=== PATIENT | male | born 1955 | race Caucasian/White ===

== ENCOUNTER 2025-06-29 10:36 | Inpatient (IN) | payer MEDICARE ==
[2025-06-29 11:18] LABS: Actual Bicarbonate (HCO3v) 22.2 mEq/L (22-28); Analyzer IN Cardio ER; Base Excess -4.5 mEq/L (-2.0 to +3.0); Calcium, Ionized (venous) 1.21 mmol/L (1.16-1.32); Chloride (VBG) 110 mmol/L (98-106); Hematocrit-VBG 37 % (36.0-47.0); Hemoglobin (Hb) 12.5 g/dL (11.7-16.1); Potassium (VBG) 4.67 mmol/L (3.70-5.30); Sodium 142 mmol/L (133-146)
[2025-06-29] MEDS ORDERED: Cefepime 2 GM VIAL ONE (11:22)
[2025-06-29 11:39] LABS: Lipase 53 U/L (8-78)
[2025-06-29 11:41] LABS: ALT (SGPT) 126 U/L (Less than 34); AST (SGOT) 92 U/L (11-34); Albumin 2.9 g/dL (3.1-4.5); Alkaline Phosphatase 111 U/L (40-110); Anion Gap 14 mmol/L (10-20); BUN (Urea Nitrogen) 26 mg/dL (9.8-20.1); Bilirubin, Total 0.4 mg/dL (0.3-1.2); Calc. Creatinine Clearance 0 mL/min (70-130); Calcium 9.1 mg/dL (7.8-10.44); Carbon Dioxide 23 mmol/L (23-31); Chloride 114 mmol/L (98-107); Globulin 3.6 g/dL (2.4-3.5); Glucose 115 mg/dL (80-115); Potassium 4.9 mmol/L (3.5-5.1); Sodium 146 mmol/L (136-145)
[2025-06-29 11:42] LABS: Acetaminophen Less than 10 mcg/mL (Less than 10); Salicylate Less than 8.0 mg/dL (Less than 8.0)
[2025-06-29 11:44] LABS: INR-International Normal Ratio 1.2; Prothrombin Time 15.4 sec (12.0-14.7)
[2025-06-29 11:45] LABS: PTT 51.0 sec (22.9-36.1)
[2025-06-29 11:51] LABS: Bacteria/HPF None Seen HPF (None Seen); CAUTI Indications for Culture Dysuria,urgency,freq; Glucose, Urine (Dipstick) Normal (Negative); Leukocyte Negative Leu/uL (Negative); Protein, Urine (Dipstick) Negative (Neg-Trace); RBC/HPF 0-3 HPF (0-3); Specific Gravity, Urine 1.018 (1.002-1.036); WBC/HPF 0-3 HPF (0-3)
[2025-06-29 11:53] LABS: Urine Culture Reflex No No
[2025-06-29 11:56] LABS: Cocaine Metabolite Screen Negative (Negative); THC/Cannabinoid Screen Negative (Negative); Tricyclic Screen Negative (Negative)
[2025-06-29] MEDS ORDERED: VANCOMYCIN 2 GRAM/400 ML BAG ONE (11:57)
[2025-06-29 12:08] LABS: Hematocrit 34.1 % (36.0-47.0); Hemoglobin 10.6 g/dL (12.0-16.0); Mean Corpuscular Hemoglobin 31.4 pg (27.0-31.0); Mean Corpuscular Volume 100.9 fL (78.0-98.0); Platelet Count 93 10x3/uL (130-400); Red Blood Cell (RBC) Count 3.38 mill/uL (4.20-5.40); White Blood Cell (WBC) Count 12.04 10x3/uL (4.8-10.8)
[2025-06-29 12:13] LABS: Anisocytosis SLIGHT = 6-15 cells HPF (0-5); Burr Cells MODERATE= 6-15 cells HPF (0-1); Macrocytosis SLIGHT = 6-15 cells HPF (0-5); Platelet Adequacy Comment Platelets Decreased; Poikilocytosis SLIGHT = 6-15 cells HPF (0-5); Polychromasia SLIGHT = 2-3 cells HPF (0-2)
[2025-06-29] MEDS ORDERED: Iopamidol-370 76% 500 ML MDV (1 ML CHARGE) ONE (12:32)
[2025-06-29] MEDS ORDERED: Ondansetron PF 4 MG/2 ML Vial IVP PRN (13:01)
[2025-06-29] MEDS ORDERED: Acetaminophen 325 MG TAB PO PRN (13:01)
[2025-06-29] MEDS ORDERED: Guaifenesin DM 100-10/5 ML UDCUP PO PRN (13:01)
[2025-06-29] MEDS ORDERED: Acetaminophen/Codeine 30-300mg Tablet PO PRN (13:01)
[2025-06-29] MEDS ORDERED: Electrolyte Replacement Protocol 1 EACH FS SCH (13:15)
[2025-06-29] MEDS ORDERED: LevoFLOXacin 750 mg/D5W 150 ml Premix Bag ONE (13:40)
[2025-06-29] MEDS ORDERED: Norepinephrine 8 MG/0.9% NS 250 ML ONE (14:57)
[2025-06-29 22:39] LABS: Base Excess (BEa) -8.4 mEq/L (-2.0 to +3.0); Calcium, Ionized (arterial) 1.11 mmol/L (1.12-1.30); Hematocrit-ABG 30 % (42.0-52.0); Hemoglobin (Hb) 10.3 g/dL (14.0-18.0); Potassium - ABG Lab 4.56 mmol/L (3.70-5.30); pH, Arterial 7.404 (7.35-7.45)
[2025-06-29 22:40] LABS: Actual Bicarbonate (HCO3a) 14.9 mEq/L (22-28); CO2 Tension 24.4 mmHg (35.0-45.0); Puncture Site LINE
[2025-06-29 23:11] VITALS: BMI 33.5
[2025-06-29] MEDS: Norepinephrine 8 MG/0.9% NS 250 ML IVPB SCH (23:12)
[2025-06-29] MEDS: Hydrocortisone Sod Succ/PF 100 mg/2 ml Vial IVP SCH (23:24)
[2025-06-29] MEDS: Vasopressin In 0.9 % NaCl 100 ML ONE (23:38)
[2025-06-29] MEDS: Vancomycin HCl 1.25 GM in Sodium Chloride 0.9% 250 ML 250 ML IVPB SCH (23:45)
[2025-06-30] MEDS: Famotidine/PF 20 mg/2ml Vial SLOW IVP SCH (00:07)
[2025-06-30] MEDS: Communication Order-Pharmacy FS ONE (00:07)
[2025-06-30] MEDS: Hydrocortisone Sod Succ/PF 100 mg/2 ml Vial IVP SCH (05:53)
[2025-06-30 06:47] LABS: Hematocrit 28.1 % (42.0-52.0); Hemoglobin 9.0 g/dL (14.0-18.0); Mean Corpuscular Hemoglobin 32.7 pg (27.0-31.0); Mean Corpuscular Volume 102.2 fL (78.0-98.0); Platelet Count 111 10x3/uL (130-400); Red Blood Cell (RBC) Count 2.75 mill/uL (4.70-6.10); White Blood Cell (WBC) Count 18.03 10x3/uL (4.8-10.8)
[2025-06-30 07:02] LABS: Vancomycin, Random 57.3 ug/mL (See Comment)
[2025-06-30 07:14] LABS: ALT (SGPT) 100 U/L (Less than 45); AST (SGOT) 64 U/L (11-34); Albumin 2.3 g/dL (3.1-4.5); Alkaline Phosphatase 94 U/L (40-110); Anion Gap 14 mmol/L (10-20); BUN (Urea Nitrogen) 28 mg/dL (8.4-25.7); Bilirubin, Total 0.4 mg/dL (0.3-1.2); Calc. Creatinine Clearance 116 mL/min (70-130); Calcium 8.1 mg/dL (7.8-10.44); Carbon Dioxide 19 mmol/L (23-31); Chloride 115 mmol/L (98-107); Globulin 3.1 g/dL (2.4-3.5); Glucose 164 mg/dL (80-115); Potassium 5.8 mmol/L (3.5-5.1); Sodium 142 mmol/L (136-145)
[2025-06-30] MEDS: FLU (Fluad Triv) 25-26 (65UP)PF 45 MCG/0.5 ML Syringe IM ONE (07:41)
[2025-06-30 08:27] LABS: Anisocytosis SLIGHT = 6-15 cells HPF (0-5); Macrocytosis SLIGHT = 6-15 cells HPF (0-5); Nucleated RBC (Manual Ct) 1 % (0); Ovalocytes SLIGHT = 2-5 cells HPF (0-1); Platelet Adequacy Comment Platelets Decreased; Poikilocytosis SLIGHT = 6-15 cells HPF (0-5); Polychromasia SLIGHT = 2-3 cells HPF (0-2); Smudge Cells 2.8 %; Toxic Granulation MODERATE
[2025-06-30] MEDS: Enoxaparin 40 MG (0.4 mL) SYRINGE SC SCH (10:15)
[2025-06-30] MEDS: Vancomycin HCl 1.25 GM in Sodium Chloride 0.9% 250 ML 250 ML IVPB SCH (10:15)
[2025-06-30] MEDS: PNEUMOC 20-VAL CONJ-DIP CRM/PF 0.5 ML SYRINGE IM ONE (10:15)
[2025-06-30] MEDS: Mupirocin 1 GM TUBE NASAL DECOLONIZATION NASAL SCH (10:16)
[2025-06-30 10:25] LABS: Actual Bicarbonate (HCO3a) 18.2 mEq/L (22-28); Base Excess (BEa) -5.6 mEq/L (-2.0 to +3.0); CO2 Tension 29.4 mmHg (35.0-45.0); Calcium, Ionized (arterial) 1.09 mmol/L (1.12-1.30); Hematocrit-ABG 28 % (42.0-52.0); Hemoglobin (Hb) 9.5 g/dL (14.0-18.0); O2 Tension (PaO2), arterial 72.9 mmHg (> 80.0); Potassium - ABG Lab 5.43 mmol/L (3.70-5.30); pH, Arterial 7.409 (7.35-7.45)
[2025-06-30 10:26] LABS: Puncture Site Arterial Line
[2025-06-30 10:27] LABS: ALV-art Gradient 175.550 mmHg (0-20)
[2025-06-30] MEDS: Dextrose 50% Abboject 50 ML SYRINGE SLOW IVP SCH (10:31)
[2025-06-30] MEDS: Albuterol 2.5 MG (3 mL) NEB NEB SCH (10:32)
[2025-06-30] MEDS: Vasopressin In 0.9 % NaCl 100 ML IV SCH (12:22)
[2025-06-30 13:39] VITALS: BMI 33.5
[2025-06-30 17:55] LABS: Potassium 5.1 mmol/L (3.5-5.1)
[2025-06-30] MEDS: Cefepime 2 GM VIAL ONE (18:18)
[2025-06-30] MEDS ORDERED: Etomidate 40 MG (20 mL) VIAL ONE (19:10)
[2025-06-30] MEDS ORDERED: DISCONTINUE PREVIOUS NARCOTIC PAIN MEDICATIONS AND BENZODIAZEPINES FS SCH (20:00)
[2025-06-30] MEDS ORDERED: Fentanyl BOLUS 100 ML IVPB PRN (20:00)
[2025-06-30] MEDS ORDERED: Propofol BOLUS 1,000 MG/100 ML VIAL IV PRN (20:00)
[2025-06-30 20:05] LABS: Actual Bicarbonate (HCO3a) 17.3 mEq/L (22-28); Base Excess (BEa) -8.9 mEq/L (-2.0 to +3.0); CO2 Tension 38.1 mmHg (35.0-45.0); Calcium, Ionized (arterial) 1.17 mmol/L (1.12-1.30); Hematocrit-ABG 31 % (42.0-52.0); Hemoglobin (Hb) 10.4 g/dL (14.0-18.0); O2 Tension (PaO2), arterial 72.3 mmHg (> 80.0); Potassium - ABG Lab 4.87 mmol/L (3.70-5.30); pH, Arterial 7.274 (7.35-7.45)
[2025-06-30 20:07] LABS: ALV-art Gradient 593.075 mmHg (0-20); Puncture Site Arterial Line
[2025-06-30] MEDS: Calcium Chloride 1 GM/10 ML Abboject SYRINGE IVP SCH (20:36)
[2025-06-30] MEDS: Albumin 25% 25 GM (100 mL) BOT IVPB SCH (23:25)
[2025-07-01 05:11] LABS: Vancomycin, Random 30.0 ug/mL (See Comment)
[2025-07-01 08:02] LABS: Base Excess (BEa) -10.5 mEq/L (-2.0 to +3.0); CO2 Tension 28.4 mmHg (35.0-45.0); Calcium, Ionized (arterial) 1.18 mmol/L (1.12-1.30); Hematocrit-ABG 27 % (42.0-52.0); Hemoglobin (Hb) 9.2 g/dL (14.0-18.0); O2 Tension (PaO2), arterial 83.8 mmHg (> 80.0); Potassium - ABG Lab 5.10 mmol/L (3.70-5.30); pH, Arterial 7.322 (7.35-7.45)
[2025-07-01 08:05] LABS: ALV-art Gradient 308.500 mmHg (0-20); Actual Bicarbonate (HCO3a) 14.4 mEq/L (22-28); Puncture Site Arterial Line
[2025-07-01 22:36] LABS: L.pneumophilia Abs Non Reactive (Non Reactive)
[2025-07-02 05:59] LABS: Vancomycin, Random 25.7 ug/mL (See Comment)
[2025-07-02 08:52] LABS: Calc. Creatinine Clearance 96.0 mL/min (70-130)
[2025-07-02 21:24] LABS: #Basophils Less than 0.03 10x3/uL (0.0-0.2); #Eosinophils Less than 0.03 10x3/uL (0.0-0.7); #Monocytes 0.38 10x3/uL (0.11-0.59); #Neutrophils 8.91 10x3/uL (1.40-6.50); %Basophils 0.1 % (0.0-1.0); %Eosinophils 0.0 % (0.0-10.0); %Lymphocytes 4.6 % (21.0-51.0); %Monocytes 3.8 % (0.0-10.0); %Neutrophils 90.0 % (42.0-75.0); Hematocrit 22.5 % (42.0-52.0); Hemoglobin 6.9 g/dL (14.0-18.0); Mean Corpuscular Hemoglobin 31.8 pg (27.0-31.0); Mean Corpuscular Volume 103.7 fL (78.0-98.0); Platelet Count 50 10x3/uL (130-400); Red Blood Cell (RBC) Count 2.17 mill/uL (4.70-6.10); White Blood Cell (WBC) Count 9.91 10x3/uL (4.8-10.8)
[2025-07-02] MEDS: Albumin 5% 12.5 GM (250 mL) BOT IVPB SCH (21:24)
[2025-07-02 21:36] LABS: ALT (SGPT) 53 U/L (Less than 45); AST (SGOT) 45 U/L (11-34); Albumin 2.5 g/dL (3.1-4.5); Alkaline Phosphatase 108 U/L (40-110); Anion Gap 16 mmol/L (10-20); BUN (Urea Nitrogen) 43 mg/dL (8.4-25.7); Bilirubin, Total 0.7 mg/dL (0.3-1.2); Calc. Creatinine Clearance 85 mL/min (70-130); Calcium 8.8 mg/dL (7.8-10.44); Carbon Dioxide 14 mmol/L (23-31); Chloride 117 mmol/L (98-107); Globulin 2.9 g/dL (2.4-3.5); Glucose 149 mg/dL (80-115); Magnesium 2.1 mg/dL (1.6-2.6); Potassium 4.4 mmol/L (3.5-5.1); Sodium 143 mmol/L (136-145)
[2025-07-02] MEDS: Norepinephrine 8 MG/0.9% NS 250 ML IVPB SCH (23:14)
[2025-07-03 04:58] LABS: ALT (SGPT) 49 U/L (Less than 45); AST (SGOT) 36 U/L (11-34); Albumin 2.8 g/dL (3.1-4.5); Alkaline Phosphatase 106 U/L (40-110); Anion Gap 14 mmol/L (10-20); BUN (Urea Nitrogen) 44 mg/dL (8.4-25.7); Bilirubin, Total 0.9 mg/dL (0.3-1.2); Calc. Creatinine Clearance 86 mL/min (70-130); Calcium 9.0 mg/dL (7.8-10.44); Carbon Dioxide 13 mmol/L (23-31); Chloride 118 mmol/L (98-107); Globulin 2.8 g/dL (2.4-3.5); Glucose 131 mg/dL (80-115); Potassium 4.1 mmol/L (3.5-5.1); Sodium 141 mmol/L (136-145)
[2025-07-03 04:59] LABS: #Basophils Less than 0.03 10x3/uL (0.0-0.2); #Eosinophils Less than 0.03 10x3/uL (0.0-0.7); #Monocytes 0.44 10x3/uL (0.11-0.59); #Neutrophils 9.36 10x3/uL (1.40-6.50); %Basophils 0.2 % (0.0-1.0); %Eosinophils 0.0 % (0.0-10.0); %Lymphocytes 6.4 % (21.0-51.0); %Monocytes 4.1 % (0.0-10.0); %Neutrophils 88.0 % (42.0-75.0); Hematocrit 27.4 % (42.0-52.0); Hemoglobin 8.4 g/dL (14.0-18.0); Mean Corpuscular Hemoglobin 31.2 pg (27.0-31.0); Mean Corpuscular Volume 101.9 fL (78.0-98.0); Platelet Count 45 10x3/uL (130-400); Red Blood Cell (RBC) Count 2.69 mill/uL (4.70-6.10); White Blood Cell (WBC) Count 10.64 10x3/uL (4.8-10.8)
[2025-07-03] MEDS: Pantoprazole 40 MG VIAL IVP SCH ×2 (11:06→20:30)
[2025-07-03] MEDS: Furosemide 20 MG (2 mL) VIAL SLOW IVP SCH (12:16)
[2025-07-04 04:31] LABS: #Basophils Less than 0.03 10x3/uL (0.0-0.2); #Eosinophils 0.14 10x3/uL (0.0-0.7); #Monocytes 0.39 10x3/uL (0.11-0.59); #Neutrophils 7.77 10x3/uL (1.40-6.50); %Basophils 0.2 % (0.0-1.0); %Eosinophils 1.6 % (0.0-10.0); %Lymphocytes 5.6 % (21.0-51.0); %Monocytes 4.4 % (0.0-10.0); %Neutrophils 86.9 % (42.0-75.0); Hematocrit 26.2 % (42.0-52.0); Hemoglobin 8.1 g/dL (14.0-18.0); Mean Corpuscular Hemoglobin 30.9 pg (27.0-31.0); Mean Corpuscular Volume 100.0 fL (78.0-98.0); Platelet Count 51 10x3/uL (130-400); Red Blood Cell (RBC) Count 2.62 mill/uL (4.70-6.10); White Blood Cell (WBC) Count 8.94 10x3/uL (4.8-10.8)
[2025-07-04 04:41] LABS: ALT (SGPT) 39 U/L (Less than 45); AST (SGOT) 20 U/L (11-34); Albumin 2.4 g/dL (3.1-4.5); Alkaline Phosphatase 100 U/L (40-110); Anion Gap 15 mmol/L (10-20); BUN (Urea Nitrogen) 50 mg/dL (8.4-25.7); Bilirubin, Total 0.6 mg/dL (0.3-1.2); Calc. Creatinine Clearance 81 mL/min (70-130); Calcium 8.6 mg/dL (7.8-10.44); Carbon Dioxide 13 mmol/L (23-31); Chloride 119 mmol/L (98-107); Globulin 3.0 g/dL (2.4-3.5); Glucose 113 mg/dL (80-115); Potassium 3.7 mmol/L (3.5-5.1); Sodium 143 mmol/L (136-145)
[2025-07-04 10:08] VITALS: BP 125/68
[2025-07-04] MEDS: Artificial Tear Ophth Sol 15 ML BOT EA EYE PRN (11:29)
[2025-07-05 04:36] LABS: ALT (SGPT) 30 U/L (Less than 45); AST (SGOT) 19 U/L (11-34); Albumin 2.2 g/dL (3.1-4.5); Alkaline Phosphatase 96 U/L (40-110); Anion Gap 15 mmol/L (10-20); BUN (Urea Nitrogen) 44 mg/dL (8.4-25.7); Bilirubin, Total 0.6 mg/dL (0.3-1.2); Calc. Creatinine Clearance 94 mL/min (70-130); Calcium 8.5 mg/dL (7.8-10.44); Carbon Dioxide 15 mmol/L (23-31); Chloride 121 mmol/L (98-107); Globulin 3.3 g/dL (2.4-3.5); Glucose 106 mg/dL (80-115); Potassium 4.0 mmol/L (3.5-5.1); Sodium 147 mmol/L (136-145)
[2025-07-05 04:42] LABS: #Basophils Less than 0.03 10x3/uL (0.0-0.2); #Eosinophils 0.19 10x3/uL (0.0-0.7); #Monocytes 0.37 10x3/uL (0.11-0.59); #Neutrophils 8.26 10x3/uL (1.40-6.50); %Basophils 0.2 % (0.0-1.0); %Eosinophils 2.0 % (0.0-10.0); %Lymphocytes 5.0 % (21.0-51.0); %Monocytes 3.9 % (0.0-10.0); %Neutrophils 87.5 % (42.0-75.0); Hematocrit 26.7 % (42.0-52.0); Hemoglobin 8.1 g/dL (14.0-18.0); Mean Corpuscular Hemoglobin 31.0 pg (27.0-31.0); Mean Corpuscular Volume 102.3 fL (78.0-98.0); Platelet Count 55 10x3/uL (130-400); Red Blood Cell (RBC) Count 2.61 mill/uL (4.70-6.10); White Blood Cell (WBC) Count 9.44 10x3/uL (4.8-10.8)
[2025-07-05] MEDS ORDERED: Potassium Chloride 20 MEQ in Premix 1 BAG IVPB PRN (13:30)
[2025-07-05] MEDS ORDERED: PHOS-NAK 1 PKT PACK PO PRN (13:30)
[2025-07-05] MEDS ORDERED: Magnesium 2 GM/50 ML(in water) 2 GM in Premix 1 BAG IVPB PRN (13:30)
[2025-07-05] MEDS: DC Sedation Protocol FS ONE (17:50)
[2025-07-05] MEDS: Glycopyrrolate 0.4 MG/ 2 ML VIAL SLOW IVP SCH (18:18)
[2025-07-06] MEDS: Glycopyrrolate 0.4 MG/ 2 ML VIAL SLOW IVP SCH (02:45)
[2025-07-06] MEDS: Norepinephrine 8 MG/0.9% NS 250 ML IVPB SCH (06:13)
[2025-07-06] MEDS: Norepinephrine 8 MG/0.9% NS 250 ML ONE (06:14)
[2025-07-06 06:52] LABS: #Basophils 0.05 10x3/uL (0.0-0.2); #Eosinophils 0.18 10x3/uL (0.0-0.7); #Monocytes 0.84 10x3/uL (0.11-0.59); #Neutrophils 12.07 10x3/uL (1.40-6.50); %Basophils 0.3 % (0.0-1.0); %Eosinophils 1.3 % (0.0-10.0); %Lymphocytes 5.2 % (21.0-51.0); %Monocytes 5.9 % (0.0-10.0); %Neutrophils 84.3 % (42.0-75.0); Hematocrit 34.5 % (42.0-52.0); Hemoglobin 9.8 g/dL (14.0-18.0); Mean Corpuscular Hemoglobin 31.8 pg (27.0-31.0); Mean Corpuscular Volume 112.0 fL (78.0-98.0); Platelet Count 132 10x3/uL (130-400); Red Blood Cell (RBC) Count 3.08 mill/uL (4.70-6.10); White Blood Cell (WBC) Count 14.32 10x3/uL (4.8-10.8)
[2025-07-06 07:06] LABS: Anion Gap 18 mmol/L (10-20); BUN (Urea Nitrogen) 49 mg/dL (8.4-25.7); Calc. Creatinine Clearance 68 mL/min (70-130); Calcium 9.0 mg/dL (7.8-10.44); Carbon Dioxide 16 mmol/L (23-31); Chloride 124 mmol/L (98-107); Glucose 91 mg/dL (80-115); Potassium 5.7 mmol/L (3.5-5.1); Sodium 152 mmol/L (136-145)
[2025-07-06] MEDS: Dextrose 50% Abboject 50 ML SYRINGE SLOW IVP SCH (08:22)
[2025-07-06] MEDS: Hydrocortisone Sod Succ/PF 100 mg/2 ml Vial IVP SCH (08:43)
[2025-07-06 08:55] LABS: Actual Bicarbonate (HCO3a) 18.1 mEq/L (22-28); Base Excess (BEa) -15.3 mEq/L (-2.0 to +3.0); Calcium, Ionized (arterial) 1.35 mmol/L (1.12-1.30); Hematocrit-ABG 31 % (42.0-52.0); Hemoglobin (Hb) 10.6 g/dL (14.0-18.0); O2 Tension (PaO2), arterial 91.5 mmHg (> 80.0); Potassium - ABG Lab 5.41 mmol/L (3.70-5.30)
[2025-07-06] MEDS: D5 1/2 NS 500 ML IV SCH (08:57)
[2025-07-06] MEDS: Sodium Bicarb 50 MEQ/50 ML Abboject 8.4% SYRINGE IVP SCH (09:01)
[2025-07-06] MEDS: Calcium Chloride 1 GM/10 ML Abboject SYRINGE IVP SCH (09:01)
[2025-07-06] MEDS: Sodium Bicarb 50 MEQ/50 ML Abboject 8.4% SYRINGE ONE (09:15)
[2025-07-06 10:41] LABS: ALV-art Gradient 219.550 mmHg (0-20); CO2 Tension 93.4 mmHg (35.0-45.0); Puncture Site Left Radial artery; pH, Arterial 6.905 (7.35-7.45)
[2025-07-06] MEDS: Albuterol 1.25 MG (3 mL) NEB NEB SCH (10:49)
[2025-07-06 11:18] VITALS: TEMP 99.9
[2025-07-06 12:13] LABS: Anion Gap 18 mmol/L (10-20); BUN (Urea Nitrogen) 50 mg/dL (8.4-25.7); Calc. Creatinine Clearance 56 mL/min (70-130); Calcium 9.6 mg/dL (7.8-10.44); Carbon Dioxide 15 mmol/L (23-31); Chloride 122 mmol/L (98-107); Glucose 120 mg/dL (80-115); Potassium 6.4 mmol/L (3.5-5.1); Sodium 149 mmol/L (136-145)
[2025-07-06] MEDS ORDERED: Hydrocortisone Sod Succ/PF 100 mg/2 ml Vial IVP SCH (15:00)
== END 2025-07-06 12:06 | disposition expired | DRG 870 ==
LOC: ERS 10:36 → EDSEX 10:36 → ERHOLD 13:19 → CCU 22:25
PROVIDERS: ADMIT Internal Medicine; ATTEND Internal Medicine
PROC: 4A133R1 Monitoring of Arterial Saturation, Peripheral, Percutaneous Approach (ICD-10-PCS; 2025-06-29)
PROC: 5A0935A Assistance with Respiratory Ventilation, Less than 24 Consecutive Hours, High Flow/Velocity Cannula (ICD-10-PCS; 2025-06-29)
PROC: 3E03329 Introduction of Other Anti-infective into Peripheral Vein, Percutaneous Approach (ICD-10-PCS; 2025-06-29)
PROC: 3E033XZ Introduction of Vasopressor into Peripheral Vein, Percutaneous Approach (ICD-10-PCS; 2025-06-29)
PROC: 0BH17EZ Insertion of Endotracheal Airway into Trachea, Via Natural or Artificial Opening (ICD-10-PCS; principal; 2025-06-30)
PROC: 5A1955Z Respiratory Ventilation, Greater than 96 Consecutive Hours (ICD-10-PCS; 2025-06-30)
PROC: 3E02340 Introduction of Influenza Vaccine into Muscle, Percutaneous Approach (ICD-10-PCS; 2025-06-30)
PROC: 3E0234Z Introduction of Serum, Toxoid and Vaccine into Muscle, Percutaneous Approach (ICD-10-PCS; 2025-06-30)
PROC: 30233J1 Transfusion of Nonautologous Serum Albumin into Peripheral Vein, Percutaneous Approach (ICD-10-PCS; 2025-07-02)
PROC: 30233N1 Transfusion of Nonautologous Red Blood Cells into Peripheral Vein, Percutaneous Approach (ICD-10-PCS; 2025-07-03)
PROC: 5A0935A Assistance with Respiratory Ventilation, Less than 24 Consecutive Hours, High Flow/Velocity Cannula (ICD-10-PCS; 2025-07-05)
DX: A41.9 Sepsis, unspecified organism (principal); G93.41 Metabolic encephalopathy; R65.21 Severe sepsis with septic shock; J96.01 Acute respiratory failure with hypoxia; J69.0 Pneumonitis due to inhalation of food and vomit; E87.0 Hyperosmolality and hypernatremia; E87.20 Acidosis, unspecified; N17.9 Acute kidney failure, unspecified; Z51.5 Encounter for palliative care; Z66 Do not resuscitate; E03.9 Hypothyroidism, unspecified; E78.00 Pure hypercholesterolemia, unspecified; I10 Essential (primary) hypertension; F32.A Depression, unspecified; T68.XXXA Hypothermia, initial encounter; R74.01 Elevation of levels of liver transaminase levels; E88.09 Other disorders of plasma-protein metabolism, not elsewhere classified; G40.909 Epilepsy, unspecified, not intractable, without status epilepticus; D69.6 Thrombocytopenia, unspecified; I87.8 Other specified disorders of veins; R91.8 Other nonspecific abnormal finding of lung field; E87.5 Hyperkalemia; D64.9 Anemia, unspecified; Z79.899 Other long term (current) drug therapy; Z79.890 Hormone replacement therapy; Z79.82 Long term (current) use of aspirin
CPT/HCPCS: 36415; 36416; 36430; 36600; 70450; 71045; 71275; 72125; 74177; 80048; 80053; 80185; 80202; 80306; 80307; 81001; 82140; 82565; 82805; 83605; 83690; 83735; 83880; 84145; 84436; 84443; 84479; 84484; 85025; 85610; 85730; 86713; 86850; 86900; 86901; 87040; 87081; 87428; 93005; 94002; 94003; 94640; 94660; 97139; J0169; J0461; J0692; J1308; J1650; J1720; J1815; J1940; J1956; J2270; J2470; J2919; J3373; J3375; J7042; J7050; J7070; J7120; J7611; J7999; P9016; P9045; P9047; Q2009; Q9967